=== PATIENT | male | born 1985 | race Two or more races ===

== ENCOUNTER 2017-07-27 10:45 | Emergency (ER) | payer OTHER ==
[~2017-07-27] VITALS: Ht 177.8 cm; Wt 81.5 kg
[2017-07-27 11:24] LABS: HEMATOCRIT 52.3 % (38.0-50.0); HEMOGLOBIN 17.9 G/DL (12.5-16.6); MCH 28.9 PG (29.0-34.0); MCHC 34.2 G/DL (30.0-36.0); MCV 84.4 FL (86-99); PLATELET COUNT 279 K/uL (156-360); RBC DIS.WIDTH-CV 12.3 % (11.8-14.6); RBC DIS.WIDTH-SD 37.5 % (39-53); WHITE BLOOD COUNT 7.4 K/uL (4.1-10.2)
[2017-07-27 11:34] LABS: CHLORIDE 102 mEq/L (99-109); POTASSIUM 4.2 mEq/L (3.7-5.4); SODIUM 138 mEq/L (136-147)
[2017-07-27 11:35] LABS: GLUCOSE 91 mg/dL (70-99)
[2017-07-27 11:39] LABS: CREATININE 1.3 mg/dL (0.6-1.3); GFR ESTIMATE (CALCULATED) > 59 mL/min/ (58.99-99999)
[2017-07-27 11:40] LABS: UREA NITROGEN (BUN) 18 mg/dL (9-23)
[2017-07-27 11:45] LABS: TROP-I INTERPRETATION NEGATIVE; TROPONIN-I < 0.01 ng/mL (0.0-0.30)
[2017-07-27 14:24] LABS: TROP-I INTERPRETATION NEGATIVE; TROPONIN-I < 0.01 ng/mL (0.0-0.30)
[2017-07-27] MEDS ORDERED: FLEXERIL10 MG PO (14:52)
[2017-07-27 15:29] VITALS: BP 141/94
== END 2017-07-27 15:30 | disposition home or self-care (01) ==
LOC: EME 10:45
PROVIDERS: Nurse Practitioner Family
DX: R07.9 Chest pain, unspecified (principal); K21.9 Gastro-esophageal reflux disease without esophagitis; R00.8 Other abnormalities of heart beat; Z88.5 Allergy status to narcotic agent
CPT/HCPCS: 71020; 80048; 84484; 85027; 93005; 99281; 99283